=== PATIENT | male | born 1990 | race Caucasian/White ===

== ENCOUNTER 2017-09-14 17:18 | Emergency (ER) | payer OTHER ==
[2017-09-14] MEDS ORDERED: FENTANYL CITRATE INJ/PF 100 MCG/2 ML AMPUL IV ONE (17:34)
[2017-09-14] MEDS ORDERED: KETOROLAC TROMETHAMINE INJ/PF 30 MG/1 ML SDV IV ONE (17:46)
--- NOTE | 2017-09-14 17:50 | ER Document Report ---
ED Extremity Problem, Lower - General Chief Complaint: Knee Injury Stated Complaint: DISLOCATED LEFT KNEE Time Seen by Provider: 09/14/17 17:25 Notes: 27-year-old male to the emergency department after falling down on his left knee. Positive dislocation of the left patella. Pain is 5/5 on a numeric pain scale. No other injuries. Located to the left knee. Patient had EMS pick patient up. 150 mcg of fentanyl given in route. Placed on backboard for transport only. TRAVEL OUTSIDE OF THE [place] IN LAST 30 DAYS: No - HPI Patient complains to provider of: Pain Location: Knee Occurred: Just prior to arrival Where: Work Onset/Duration: Sudden - Related Data Allergies/Adverse Reactions: No Known Allergies Allergy (Verified 09/14/17 17:32) Past Medical History - General Information source: Patient - Social History Smoking Status: Never Smoker Frequency of alcohol use: None Drug Abuse: None Lives with: Family Family History: Reviewed & Not Pertinent Patient has suicidal ideation: No Patient has homicidal ideation: No - Medical History Medical History: Negative Renal/ Medical History: Denies: Hx Peritoneal Dialysis Review of Systems - Review of Systems Constitutional: No symptoms reported EENT: No symptoms reported Cardiovascular: No symptoms reported Respiratory: No symptoms reported Gastrointestinal: No symptoms reported Genitourinary: No symptoms reported Male Genitourinary: No symptoms reported Musculoskeletal: See HPI, Joint pain, Joint swelling, Deformity Skin: No symptoms reported Hematologic/Lymphatic: No symptoms reported Neurological/Psychological: No symptoms reported Physical Exam - Vital signs Vitals: Temp Pulse Resp BP Pulse Ox 97.9 F 101 H 22 H 142/82 H 97 09/14/17 17:29 09/14/17 17:29 09/14/17 17:29 09/14/17 17:29 09/14/17 17:29 Interpretation: Normal - Notes Notes: Uncomfortable - General General appearance: Appears well, Alert - HEENT Head: Normocephalic, Atraumatic Eyes: Normal Pupils: PERRL - Respiratory Respiratory status: No respiratory distress Chest status: Nontender Breath sounds: Normal Chest palpation: Normal - Cardiovascular Rhythm: Regular Heart sounds: Normal auscultation Murmur: No - Abdominal Inspection: Normal Distension: No distension Bowel sounds: Normal Tenderness: Nontender Organomegaly: No organomegaly - Back Back: Normal, Nontender - Extremities General upper extremity: Normal inspection, Nontender, Normal color, Normal ROM , Normal temperature General lower extremity: Other - Significantly uncomfortable. Patient has obvious deformity to the left patella. The patella appears to be dislocated laterally. Pulses are intact distally.. No: Lyndsey's sign - Neurological Neuro grossly intact: Yes Cognition: Normal Orientation: AAOx4 Jacky Coma Scale Eye Opening: Spontaneous Jacky Coma Scale Verbal: Oriented [place] Coma Scale Motor: Obeys Commands [place] Coma Scale Total: 15 Speech: Normal Motor strength normal: LUE, RUE, LLE, RLE Sensory: Normal - Psychological Associated symptoms: Normal affect, Normal mood - Skin Skin Temperature: Warm Skin Moisture: Dry Skin Color: Normal Course - Re-evaluation Re-evalutation: 09/14/17 18:02 Dislocation/reduction technique: Patient received an additional 100 mcg of fentanyl. Control pressure was applied laterally to medially to the left patella. There was a palpable reduction. Patella was held in place. When I let the patella go to put the splint on it popped back laterally. The patella was then reduced again. Help was obtained to help place patient in a splint. Repeat x-rays were performed. 09/14/17 18:14 On further questioning patient states that he was doing a activity where there is a bungee cord attached to his back and he was running to see how far he can get under this tension when he felt and heard a loud pop in the left knee. I have consulted with orthopedic surgery, Dr. Dowell. He will follow up with patient on Saturday. Patient is resting comfortably at this time. Anticipate discharge with crutches. - Vital Signs Vital signs: Temp Pulse Resp BP Pulse Ox 97.9 F 101 H 22 H 142/82 H 97 09/14/17 17:29 09/14/17 17:29 09/14/17 17:29 09/14/17 17:29 09/14/17 17:29 Discharge - Discharge Clinical Impression: Dislocation of left patella Qualifiers: Encounter type: initial encounter Qualified Code(s): S83.005A - Unspecified dislocation of left patella, initial encounter Rupture of left patellar tendon Qualifiers: Encounter type: initial encounter Qualified Code(s): S86.812A - Strain of other muscle(s) and tendon(s) at lower leg level, left leg, initial encounter Disposition: HOME, SELF-CARE Instructions: Use of Crutches ([facility]), Knee Immobilizing Splint ([facility]), Dislocation of the Patella ([facility]) Additional Instructions: No weightbearing to the left lower extremity. Crutches. Wear the brace. Pain medication as needed. Follow-up with orthopedic surgery first thing Saturday. You should expect a call but if you have not heard from them by noon on Saturday then please call the clinic. Prescriptions: Hydrocodone/Acetaminophen [[place] 5-325 mg Tablet] 1 tab PO QID PRN 5 Days #20 tablet PRN Reason: Forms: Return to Work Referrals: EDEN DOWELL DO [ACTIVE STAFF] - 09/16/17 8:00 am
[2017-09-14] MEDS ORDERED: HYDROCODONE/ACETAMINOPHEN 5-325 MG (6 TAB/ER DISP) PO PRN (18:20)
--- NOTE | 2017-09-14 18:22 | RADIOLOGY REPORT (SQ) ---
EXAM DESCRIPTION: KNEE LEFT 2 VIEWS COMPLETED DATE/TIME: 09/14/2017 6:01 pm REASON FOR STUDY: patella dislocation COMPARISON: Left knee x-ray 09/14/2017 at 17:29 hours. NUMBER OF VIEWS: Two views. TECHNIQUE: AP and lateral radiographic images acquired of the left knee on 09/14/2017 at 17:54 hours. LIMITATIONS: None. FINDINGS: MINERALIZATION: Normal. BONES: No acute fracture or dislocation. Interval closed reduction of the lateral dislocation of the patella. JOINT: No significant effusion. SOFT TISSUES: No soft tissue swelling. No radio-opaque foreign body. IMPRESSION: Interval closed reduction of the lateral dislocation of the patella. No radiographic ev idence for acute fracture. TECHNICAL DOCUMENTATION: JOB ID: [id number] [place]-64 2010 [employer]- All Rights Reserved Reading location - IP/workstation name: [email or web address]
--- NOTE | 2017-09-14 18:28 | RADIOLOGY REPORT (SQ) ---
EXAM DESCRIPTION: KNEE LEFT 4 VIEW COMPLETED DATE/TIME: 09/14/2017 6:01 pm REASON FOR STUDY: deformity COMPARISON: None. NUMBER OF VIEWS: Four views. TECHNIQUE: AP, lateral, and both oblique radiographic images acquired of the left knee. LIMITATIONS: None. FINDINGS: MINERALIZATION: Normal. BONES: There is lateral dislocation of the patella. No evidence for acute fracture. JOINT: No significant effusion. SOFT TISSUES: No soft tissue swelling. No radio-opaque foreign body. IMPRESSION: Lateral dislocation of the patella. TECHNICAL DOCUMENTATION: JOB ID: [id number] [place]-[id number] 2010 [employer]- All Rights Reserved Reading location - IP/workstation name: [email or web address]
[2017-09-14 18:58] VITALS: BP 150/78
== END 2017-09-14 18:57 | disposition home or self-care (01) ==
LOC: ER 17:18
DX: S83.015A Lateral dislocation of left patella, initial encounter (principal); W01.0XXA Fall on same level from slipping, tripping and stumbling without subsequent striking against object, initial encounter; Y93.02 Activity, running; Y99.0 Civilian activity done for income or pay
CPT/HCPCS: 99284; 96374; 73560; 73564; 27562; L1830; J3010; J1885

== ENCOUNTER 2018-06-07 18:54 | Emergency (ER) | payer OTHER ==
[2018-06-07] MEDS ORDERED: AMOXICILLIN TR/POT CLAVULANATE 500-125 MG TAB PO ONE (19:21)
[2018-06-07] MEDS ORDERED: AMOXICILLIN TRIHYDRATE 500 MG CAPSULE PO ONE (19:21)
[2018-06-07] MEDS ORDERED: DIPH/PERTUSS(ACELL)/TETANUS VAC/PF 0.5 ML SYR (>=10YO) IM ONE (19:21)
--- NOTE | 2018-06-07 19:27 | ER Document Report ---
ED Animal Bite - General Chief Complaint: Dog Bite Stated Complaint: DOG BITE Time Seen by Provider: 06/07/18 19:21 Primary Care Provider: JARED IRAHETA DO [Primary Care Provider] - Follow up as needed Notes: Patient is a 27-year-old male that comes to the emergency department for chief complaint of dog bite to the right forearm. He has 2 different puncture wounds in the forearm. Injury happened just prior to arrival, he states he was walking his dog when a stray dog that appeared to be a pit bull came out and attacked his dog, he states he was trying to separate them when he was bitten. Animal control was contacted, and uncontrolled currently has the dog. Patient states it was not a collar on the dog but the dog did appear well kept. 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 Patient denies any other injuries. He takes no daily medications, he denies any other complaints. TRAVEL OUTSIDE OF THE [place] IN LAST 30 DAYS: No - Related Data Allergies/Adverse Reactions: No Known Allergies Allergy (Verified 06/07/18 18:56) Past Medical History - General Information source: Patient - Social History Smoking Status: Never Smoker Drug Abuse: None Lives with: Family Family History: Reviewed & Not Pertinent - Medical History Medical History: Negative Renal/ Medical History: Denies: Hx Peritoneal Dialysis Surgical Hx: Negative - Immunizations Immunizations up to date: No Hx Diphtheria, Pertussis, Tetanus Vaccination: Yes Review of Systems - Review of Systems Constitutional: No symptoms reported EENT: No symptoms reported Cardiovascular: No symptoms reported Respiratory: No symptoms reported Gastrointestinal: No symptoms reported Genitourinary: No symptoms reported Male Genitourinary: No symptoms reported Musculoskeletal: See HPI Skin: See HPI Hematologic/Lymphatic: No symptoms reported Neurological/Psychological: No symptoms reported Physical Exam - Vital signs Vitals: Temp Pulse Resp BP Pulse Ox 99.1 F 79 20 134/96 H 94 06/07/18 18:59 06/07/18 18:59 06/07/18 18:59 06/07/18 18:59 06/07/18 18:59 - Notes Notes: GENERAL: Alert, interacts well. No acute distress. HEAD: Normocephalic, atraumatic. EYES: Pupils equal, round, and reactive to light. Extraocular movements intact. ENT: Oral mucosa moist, tongue midline. Oropharynx unremarkable. Airway patent. NECK: Full range of motion. Supple. Trachea midline. LUNGS: Clear to auscultation bilaterally, no wheezes, rales, or rhonchi. No respiratory distress. HEART: Regular rate and rhythm. No murmur ABDOMEN: Soft, non-tender. Non-distended. Bowel sounds present in all 4 quadrants. GENITOURINARY: Deferred EXTREMITIES: Right forearm with a puncture wound over the flexural and extensor surfaces, both are less than 0.5 cm in length, through the skin and into the subcutaneous tissue, there is no swelling, there is no current bleeding, there is no bruising. Normal range of motion of the elbow, wrist, fingers. Normal capillary refill and sensation. Normal radial pulse. BACK: no cervical, thoracic, lumbar midline tenderness. No saddle anesthesia, normal distal neurovascular exam. NEUROLOGICAL: Alert and oriented x3. Normal speech. [cranial nerves II through XII grossly intact]. PSYCH: Normal affect, normal mood. SKIN: Warm, dry, normal turgor. No rashes or lesions noted. Course - Re-evaluation Re-evalutation: There is no significant swelling or tenderness to the genital areas, there are 2 puncture wounds, there is no neurovascular deficit. Discussed with patient. Decision was made to leave these open to avoid infection, these were cleaned, irrigated thoroughly by me, dressed with xeroform/cling/coban, patient was started on prophylactic antibiotics. Updated tetanus. Dog is in quarantine, patient has already received rabies vaccine due to his occupation. Discussed follow-up and return precautions with patient. Patient states understanding and agreement. - Vital Signs Vital signs: Temp Pulse Resp BP Pulse Ox 98.0 F 69 20 139/88 H 97 06/07/18 20:28 06/07/18 20:28 06/07/18 18:59 06/07/18 20:28 06/07/18 20:28 Discharge - Discharge Clinical Impression: Dog bite Qualifiers: Encounter type: initial encounter Qualified Code(s): W54.0XXA - Bitten by dog, initial encounter Forearm laceration Qualifiers: Encounter type: initial encounter Laterality: right Qualified Code(s): S51.811A - Laceration without foreign body of right forearm, initial encounter Condition: Stable Disposition: HOME, SELF-CARE Instructions: Tetanus Immunization Given ([facility]) Additional Instructions: Keep clean dressings over the wounds. These were not closed because of the infection risk of doing so. These will heal with time. Keep clean with soap and water. Take Augmentin antibiotic as prescribed, I recommend a probiotic source to avoid diarrhea while taking. Follow-up with primary care. Return for any concerning symptoms including developing or spreading redness, swelling, discolored discharge, fever, or any other concerning or worsening symptoms. Prescriptions: Amox Tr/Potassium Clavulanate [Augmentin 875-125 Tablet] 1 tab PO BID 7 Days tablet Referrals: JARED IRAHETA DO [Primary Care Provider] - Follow up as needed
[2018-06-07 20:32] VITALS: BP 139/88
== END 2018-06-07 20:33 | disposition home or self-care (01) ==
LOC: ER 18:54
DX: S51.851A Open bite of right forearm, initial encounter (principal); W54.0XXA Bitten by dog, initial encounter; Y93.K9 Activity, other involving animal care; Z23 Encounter for immunization
CPT/HCPCS: 90715; 99283

== ENCOUNTER 2019-04-29 21:30 | Emergency (ER) | payer OTHER ==
--- NOTE | 2019-04-29 22:13 | ER Document Report ---
ED Medical Screen (RME) - General Stated Complaint: EYE DISCOMFORT Time Seen by Provider: 04/29/19 22:08 Primary Care Provider: JARED IRAHETA DO [Primary Care Provider] - Follow up as needed Notes: HPI: History is obtained from the patient and his girlfriend. A 28-year-old male brought for evaluation of blood in the lower aspects of both eyes. Significant other states she noticed it today. Patient states that he had a very harsh coughing episode last night and believes this may have caused it. He has no other history of bruising or bleeding problems. Does not bleed from the gums significantly when brushing the teeth. Does not bruise easily normally. Significant other indicates he did donate plasma this morning. I have greeted and performed a rapid initial assessment of this patient. A comprehensive ED assessment and evaluation of the patient, analysis of test results and completion of the medical decision making process will be conducted by additional ED providers PHYSICAL EXAMINATION: GENERAL: Well-appearing, well-nourished and in no acute distress. HEAD: Atraumatic, normocephalic. EYES: Bilateral sub-conjunctival hemorrhages are noted in the lower aspects of both eyes. There is not significant icterus in the eyes although there is very slight yellowing adjacent to the subconjunctival hemorrhage medially in the right eye. No visible hyphema. No visible corneal abrasion ENT: Moist mucous membranes. NECK: Normal range of motion LUNGS: Normal work of breathing HEART: 2+ radial pulses bilaterally ABD: limited by positioning for exam in triage. EXTREMITIES: no pitting or edema. No cyanosis. NEUROLOGICAL: No focal neurological deficits. Moves all extremities spontaneously and on command. PSYCH: Normal mood, normal affect. SKIN: Warm, Dry, normal turgor, no rashes or lesions noted. No significant b ruising is noted TRAVEL OUTSIDE OF THE [place] IN LAST 30 DAYS: No - Related Data Allergies/Adverse Reactions: No Known Allergies Allergy (Verified 04/29/19 22:07) Past Medical History Renal/ Medical History: Denies: Hx Peritoneal Dialysis - Immunizations Immunizations up to date: No Hx Diphtheria, Pertussis, Tetanus Vaccination: Yes Physical Exam - Vital signs Vitals: Temp Pulse Resp BP Pulse Ox 97.9 F 84 20 150/76 H 96 04/29/19 21:38 04/29/19 21:38 04/29/19 21:38 04/29/19 21:38 04/29/19 21:38 Course - Vital Signs Vital signs: Temp Pulse Resp BP Pulse Ox 97.9 F 84 20 150/76 H 96 04/29/19 21:38 04/29/19 21:38 04/29/19 21:38 04/29/19 21:38 04/29/19 21:38 Doctor's Discharge - Discharge Referrals: JARED IRAHETA DO [Primary Care Provider] - Follow up as needed
[2019-04-29 23:00] LABS: ABSOLUTE BASOPHILS # (AUTO) 0.1 10^3/uL (0.0-0.2); ABSOLUTE EOSINOPHILS # (AUTO) 0.1 10^3/uL (0.0-0.6); ABSOLUTE LYMPHOCYTES (AUTO) 3.3 10^3/uL (0.5-4.7); ABSOLUTE MONOCYTES (AUTO) 0.7 10^3/uL (0.1-1.4); BASOPHILS % (AUTO) 0.7 % (0-2); EOSINOPHILS % (AUTO) 0.7 % (0-6); HEMATOCRIT 45.8 % (37.9-51.0); LYMPHOCYTES % (AUTO) 29.4 % (13-45); MEAN CORPUSCULAR HEMOGLOBIN 30.3 pg (27.0-33.4); MEAN CORPUSCULAR HGB CONC 34.8 g/dL (32.0-36.0); MEAN CORPUSCULAR VOLUME 87 fl (80-97); MONOCYTES % (AUTO) 6.3 % (3-13); PLATELET COUNT 244 10^3/uL (150-450); RED BLOOD COUNT 5.27 10^6/uL (4.35-5.55); SEGMENTED NEUTROPHILS % (AUTO) 62.9 % (42-78); TOTAL CELLS COUNTED % (AUTO) 100 %; WHITE BLOOD COUNT 11.1 10^3/uL (4.0-10.5)
[2019-04-29 23:07] LABS: INTERNATIONAL RATION (INR) 1.05; PROTHROMBIN TIME 13.7 SEC (11.4-15.4)
[2019-04-29 23:20] LABS: ALBUMIN 3.6 g/dL (3.5-5.0); ALKALINE PHOSPHATASE 59 U/L (38-126); ANION GAP 7 (5-19); ASPARTATE AMINO TRANSFERASE 33 U/L (17-59); BILIRUBIN,TOTAL 0.4 mg/dL (0.2-1.3); BLOOD UREA NITROGEN 19 mg/dL (7-20); CALCIUM 8.8 mg/dL (8.4-10.2); CARBON DIOXIDE 26 mmol/L (22-30); CHLORIDE 105 mmol/L (98-107); GLUCOSE 96 mg/dL (75-110); POTASSIUM 3.9 mmol/L (3.6-5.0); TOTAL PROTEIN 6.2 g/dL (6.3-8.2)
--- NOTE | 2019-04-30 00:54 | ER Document Report ---
HPI - HPI Time Seen by Provider: 04/29/19 22:08 Pain Level: Denies Context: Patient is a 28-year-old male that comes to the emergency department for chief complaint of blood in the lower aspect of both the eyes. This was noticed earlier today. Patient and her friend states that patient did have a very harsh coughing episode last night and I think this is the cause was able to be checked. Girlfriend also states that in the left eye there was some yellowing that she noticed that this is almost resolved at this point. Patient denies headache, head injury, visual changes, or any complaints. He states he has no symptoms. He did donate plasma this morning. He takes no daily medications, no past medical history reported. Past Medical History - General Information source: Patient - Social History Smoking Status: Never Smoker Frequency of alcohol use: None Drug Abuse: None Lives with: Family Family History: Reviewed & Not Pertinent Patient has suicidal ideation: No Patient has homicidal ideation: No Renal/ Medical History: Denies: Hx Peritoneal Dialysis - Immunizations Immunizations up to date: Yes Hx Diphtheria, Pertussis, Tetanus Vaccination: Yes Vertical Provider Document - CONSTITUTIONAL General Appearance: WD/WN, No Apparent Distress - Sleeping but easily aroused - INFECTION CONTROL TRAVEL OUTSIDE OF THE [place] IN LAST 30 DAYS: No - HEENT HEENT: Atraumatic, Normocephalic. negative: Normal ENT Exam - Unremarkable nasal, oral pharyngeal exam, ear exams. Normal eyes with normal conjunctivo-, pupils, and EOMs. Right upper eyelid with what appears to be a hordeolum which is mildly tender, surrounding area is mildly erythematous extending to the orbit and over the eyelid. There is no soft tissue swelling. There is no induration or fluctuance. Course - Re-evaluation Re-evalutation: Evaluation is consistent with a right sided upper eyelid hordeolum. There is some mild erythema surrounding this suggesting some cellulitis but patient has no swelling to the area and he has normal EOMs. No fever. No signs of distress. Patient will be covered with Keflex because of borderline cellulitis along with the treatment of hordeolum using erythromycin and general measures. Discussed follow-up and return precautions. Patient states understanding and agreement. Stable at time of discharge. - Vital Signs Vital signs: Temp Pulse Resp BP Pulse Ox 97.9 F 84 20 150/76 H 96 04/29/19 21:38 04/29/19 21:38 04/29/19 21:38 04/29/19 21:38 04/29/19 21:38 - Laboratory Result Diagrams: 04/29/19 22:48 04/29/19 22:48 Laboratory results interpreted by me: 04/29/19 04/29/19 22:48 22:48 WBC 11.1 H Total Protein 6.2 L Discharge - Discharge Clinical Impression: Subconjunctival hemorrhage Qualifiers: Laterality: bilateral Qualified Code(s): H11.33 - Conjunctival hemorrhage, bilateral Condition: Stable Disposition: HOME, SELF-CARE Additional Instructions: The examination shows subconjunctival hemorrhage but no concerning findings. The laboratory work-up does not show any abnormality at this time. The areas will resolve with time, this usually takes 1 to 2 weeks. Follow-up with primary care for additional evaluation and management. Return for any concerning symptoms including severe headache, changes in your vision, or any other concerning or worsening symptoms. Forms: Elevated Blood Pressure Referrals: JRAED IRAHETA DO [NO LOCAL MD] - Follow up as needed
[2019-04-30 01:18] VITALS: BP 129/65
== END 2019-04-30 01:18 | disposition home or self-care (01) ==
LOC: ER 21:30
DX: H11.33 Conjunctival hemorrhage, bilateral (principal); R05 Cough
CPT/HCPCS: 36415; 80053; 85025; 85610; 99283

== ENCOUNTER 2019-06-05 18:38 | Emergency (ER) | payer OTHER ==
[2019-06-05] MEDS ORDERED: TETRACAINE HCL 0.5% OPH SOLN 4 ML OD ONE (20:02)
--- NOTE | 2019-06-05 20:02 | ER Document Report ---
ED Medical Screen (RME) - General Chief Complaint: Eye Injury Stated Complaint: EYE INJURY Time Seen by Provider: 06/05/19 19:58 Primary Care Provider: JULIANE BEDOLLA MD [Primary Care Provider] - Follow up as needed TRAVEL OUTSIDE OF THE [place] IN LAST 30 DAYS: No - HPI Notes: 06/05/19 20:01 Patient is a 28-year-old male presents complaining of possible scratch to his right eye by the baby. He does not wear contact lenses. Patient has had irritation and blurriness to the eye. He does not wear contact lenses. No foreign body sensation. Denies drug allergies. No recent illness. I have treated and performed a rapid initial assessment of this patient. A comprehensive ED assessment and evaluation of the patient, analysis of test results and completion of medical decision making process will be conducted by additional ED providers. PHYSICAL EXAMINATION: GENERAL: Well-appearing, well-nourished and in no acute distress. A&Ox4. Answers questions appropriately. Right eye: PERRLA, EOMI bilaterally. No injection, matting, or purulence. No surrounding erythema. - Related Data Allergies/Adverse Reactions: No Known Allergies Allergy (Verified 04/29/19 22:07) Past Medical History Renal/ Medical History: Denies: Hx Peritoneal Dialysis - Immunizations Immunizations up to date: Yes Hx Diphtheria, Pertussis, Tetanus Vaccination: Yes Physical Exam - Vital signs Vitals: Temp Pulse Resp BP Pulse Ox 97.8 F 64 20 154/62 H 97 06/05/19 18:52 06/05/19 18:52 06/05/19 18:52 06/05/19 18:52 06/05/19 18:52 Course - Vital Signs Vital signs: Temp Pulse Resp BP Pulse Ox 97.8 F 64 20 154/62 H 97 06/05/19 18:52 06/05/19 18:52 06/05/19 18:52 06/05/19 18:52 06/05/19 18:52 Doctor's Discharge - Discharge Referrals: JULIANE BEDOLLA MD [Primary Care Provider] - Follow up as needed
[2019-06-05] MEDS ORDERED: POLYMYXIN B SULFATE/TMP OPH SOLN (10 ML/ER DISP) OD PRN (22:49)
--- NOTE | 2019-06-05 22:53 | ER Document Report ---
HPI - HPI Patient complains to provider of: eye pain Time Seen by Provider: 06/05/19 22:35 Onset: This afternoon Onset/Duration: Sudden Quality of pain: Burning Pain Level: 2 Context: Patient states that a small child accidentally scratched his eye earlier today. Patient states that he has had right eye pain, tearing and blurred vision since the injury. Patient denies any use of glasses or contact lenses. Associated Symptoms: denies: Fever Exacerbated by: Denies Relieved by: Denies Similar symptoms previously: Yes Recently seen / treated by doctor: No - ROS ROS below otherwise negative: Yes Systems Reviewed and Negative: Yes All other systems reviewed and negative - EENT EENT: REPORTS: Eye problems - NEURO Neurology: REPORTS: Vision blurred - DERM Skin Color: Normal Skin Problems: None Past Medical History - General Information source: Patient - Social History Smoking Status: Never Smoker Chew tobacco use (# tins/day): No Drug Abuse: None Lives with: Family Family History: Reviewed & Not Pertinent Patient has suicidal ideation: No Patient has homicidal ideation: No - Medical History Medical History: Negative Renal/ Medical History: Denies: Hx Peritoneal Dialysis Surgical Hx: Negative - Immunizations Immunizations up to date: Yes Hx Diphtheria, Pertussis, Tetanus Vaccination: Yes Vertical Provider Document - CONSTITUTIONAL Agree With Documented VS: Yes Exam Limitations: No Limitations General Appearance: WD/WN, No Apparent Distress - INFECTION CONTROL TRAVEL OUTSIDE OF THE [place] IN LAST 30 DAYS: No - HEENT HEENT: Atraumatic, Normocephalic Notes: Patient with a 2 mm area of fluorescein uptake on examination. Sclera of right eye mildly injected. Tearing noted to right eye. Patient with some mild photophobia. Extraocular movements intact. Patient with small corneal abrasion, no ulcer, foreign body or dendrite - NECK Neck: Normal Inspection - RESPIRATORY Respiratory: Breath Sounds Normal, No Respiratory Distress - CARDIOVASCULAR Cardiovascular: Regular Rate, Regular Rhythm - MUSCULOSKELETAL/EXTREMETIES Musculoskeletal/Extremeties: MAEW - NEURO Level of Consciousness: Awake, Alert, Appropriate Motor/Sensory: No Motor Deficit - DERM Integumentary: Warm, Dry, No Rash Course - Re-evaluation Re-evalutation: 06/05/19 22:51 Patient with small corneal abrasion noted on examination. Patient encouraged to follow-up with ophthalmology for any persistent pain or problems. Good return precautions discussed. - Vital Signs Vital signs: Temp Pulse Resp BP Pulse Ox 97.8 F 64 20 154/62 H 97 06/05/19 18:52 06/05/19 18:52 06/05/19 18:52 06/05/19 18:52 06/05/19 18:52 Discharge - Discharge Clinical Impression: Corneal abrasion Qualifiers: Encounter type: initial encounter Laterality: right Qualified Code(s): S05.01XA - Injury of conjunctiva and corneal abrasion without foreign body, right eye, initial encounter Condition: Stable Disposition: HOME, SELF-CARE Instructions: Corneal Abrasion ([facility]), Eyedrop Use ([facility]) Additional Instructions: Return immediately for any new or worsening symptoms Followup with your primary care provider, call tomorrow to make a followup appointment Instill antibiotic eyedrop to the right eye 4 times a day for the next 7 days. Forms: Return to Work Referrals: JULIANE BEDOLLA MD [ACTIVE STAFF] - Follow up as needed [facility] [Provider Group] - Follow up as needed
[2019-06-05 23:17] VITALS: BP 131/80
== END 2019-06-05 23:16 | disposition home or self-care (01) ==
LOC: ER 18:38
DX: S05.01XA Injury of conjunctiva and corneal abrasion without foreign body, right eye, initial encounter (principal); H57.11 Ocular pain, right eye; H53.8 Other visual disturbances; W50.0XXA Accidental hit or strike by another person, initial encounter
CPT/HCPCS: 99283; J3490 ×2

== ENCOUNTER 2020-01-28 07:58 | Emergency (ER) | payer OTHER ==
--- NOTE | 2020-01-28 08:45 | ER Document Report ---
ED GI/ - General Chief Complaint: Loose Stools Stated Complaint: COUGH/CONGESTION/NAUSEA/DIARRHEA/CHILLS/HEADACHE Time Seen by Provider: 01/28/20 08:11 Primary Care Provider: KATHY HERNANDEZ PA [NO LOCAL MD] - Follow up tomorrow (Call tomorrow for an outpatient follow-up appointment.) Mode of Arrival: Ambulatory Information source: Patient Notes: 29-year-old male with no previous medical problems presents to the emergency room complaining of sharp lower abdominal pain that started earlier this morning. Complains of nausea but no vomiting also complains of a headache and cough for 2 days. States he had 3 episodes of diarrhea earlier today. Patient did have a positive Covid 19 exposure last . Has not been tested for Covid. Has not taken any medications for his symptoms. Denies any bad food. Denies any recent antibiotic use. TRAVEL OUTSIDE OF THE [place] IN LAST 30 DAYS: No - Related Data Allergies/Adverse Reactions: No Known Allergies Allergy (Verified 01/28/20 08:28) Past Medical History - General Information source: Patient - Social History Smoking Status: Never Smoker Frequency of alcohol use: None Drug Abuse: None Family History: Reviewed & Not Pertinent Patient has homicidal ideation: No Renal/ Medical History: Denies: Hx Peritoneal Dialysis - Immunizations Immunizations up to date: Yes Hx Diphtheria, Pertussis, Tetanus Vaccination: Yes Review of Systems - Review of Systems Constitutional: No symptoms reported EENT: No symptoms reported Cardiovascular: No symptoms reported Respiratory: Cough. denies: Short of breath, Wheezing Gastrointestinal: Abdominal pain, Diarrhea, Nausea. denies: Vomiting Genitourinary: No symptoms reported Skin: No symptoms reported Neurological/Psychological: No symptoms reported -: Yes All other systems reviewed and negative Physical Exam - Vital signs Vitals: Temp Pulse Resp BP Pulse Ox 98.3 F 80 18 134/95 H 99 01/28/20 08:07 01/28/20 08:07 01/28/20 08:07 01/28/20 08:07 01/28/20 08:07 - Notes Notes: GENERAL: Mild acute distress, non-toxic appearance. HEAD: Normal with no signs of head trauma. EYES: PERRLA, EOMI, conjunctiva normal, no discharge. EARS: Hearing grossly intact. NOSE: Normal. THROAT: Oropharynx is normal. NECK: Normal range of motion, no tenderness, supple, no lymphadenopathy, No adenopathy, no JVD. CHEST: Clear breath sounds bilaterally. No wheezes, rales, or rhonchi. CARDIAC: Regular rate and rhythm. S1 and S2, without murmurs, gallops, or rubs. VASCULAR: No Edema. Peripheral pulses normal and equal in all extremities. ABDOMEN: Normal and soft with generalized tenderness on palpation, no guarding, no rebound, negative McBurney's point. No masses or pulsatile masses. No organomegaly. Positive bowel sounds x4. No CVA tenderness noted bilaterally. GASTROINTESTINAL: Bowel sounds normal LYMPATHTIC: No lymphadenopathy noted. MUSCULOSKELETAL: Good range of motion of all major joints. Extremities without clubbing, cyanosis or edema. NEUROLOGICAL: Alert and oriented x 3. No focal sensory or strength deficits. Speech normal. Follows commands appropriately. PSYCHIATRIC: Normal Affect, judgement and mood. SKIN: Normal appearance with no rashes or lesions. Course - Re-evaluation Re-evalutation: 01/28/20 10:15 Reviewed CBC and chemistry panel with patient. Due to elevated white count will get CT abdomen and pelvis with IV contrast only. Patient does not have right lower quadrant pain no guarding no rebound, no fevers, low suspicion for appendicitis. Patient is agreeable to additional testing. 01/28/20 10:57 01/28/20 13:44 Patient is resting comfortably he is pain-free on exam. He is afebrile, he is nontoxic-appearing, all test results were reviewed with the patient at length. Long discussion concerning diverticulitis, diet modifications, medications. Patient will be given his first dose of Cipro and Flagyl p.o. prior to discharge. Counseled on importance of outpatient follow-up with his primary care physician tomorrow. Patient was given strict return to the emergency room guidelines. Return for any new or worsening symptoms. All questions were answered. Patient verbalized understanding and agrees with plan of care. - Vital Signs Vital signs: Temp Pulse Resp BP Pulse Ox 98.3 F 80 18 122/76 95 01/28/20 14:30 01/28/20 14:18 01/28/20 14:18 01/28/20 14:18 01/28/20 14:18 - Laboratory Result Diagrams: 01/28/20 09:11 01/28/20 09:11 Laboratory results interpreted by me: 01/28/20 01/28/20 09:11 10:03 WBC 15.3 H Lymph % (Auto) 12.4 L Absolute Neuts (auto) 12.3 H Seg Neutrophils % 80.7 H Ur Leukocyte Esterase TRACE H - Diagnostic Test Radiology reviewed: Reports reviewed Discharge - Discharge Clinical Impression: Diverticulitis of sigmoid colon, Person under investigation for COVID-19 Condition: Stable Disposition: HOME, SELF-CARE Instructions: COVID-19 Guidance for Persons Under Investigation, Ciprofloxacin ([facility]), Diverticulitis ([facility]) Additional Instructions: Avoid any foods with nuts or seeds. You are required to self quarantine until you get a negative COVID-19 test. Follow-up with your primary care physician tomorrow. Take all medications as prescribed. Return to the emergency room for any new or worsening symptoms. Prescriptions: Ciprofloxacin HCl [Cipro 500 mg Tablet] 500 mg PO BID 7 Days #14 tablet Metronidazole [Flagyl 500 mg Tablet] 500 mg PO Q6H #28 tablet Forms: Return to Work Referrals: KATHY HERNANDEZ PA [NO LOCAL MD] - Follow up tomorrow (Call tomorrow for an outpatient follow-up appointment.)
--- NOTE | 2020-01-28 09:13 | RADIOLOGY REPORT (SQ) ---
EXAM DESCRIPTION: CHEST SINGLE VIEW IMAGES COMPLETED DATE/TIME: 01/28/2020 9:05 am REASON FOR STUDY: cough COMPARISON: None. EXAM PARAMETERS: NUMBER OF VIEWS: One view. TECHNIQUE: Single frontal radiographic view of the chest acquired. RADIATION DOSE: NA LIMITATIONS: None. FINDINGS: LUNGS AND PLEURA: No opacities, masses or pneumothorax. No pleural effusion. MEDIASTINUM AND HILAR STRUCTURES: No masses. Contour normal. HEART AND VASCULAR STRUCTURES: Heart normal in size. Normal vasculature. BONES: No acute findings. HARDWARE: None in the chest. OTHER: No other significant finding. IMPRESSION: NO ACUTE RADIOGRAPHIC FINDING IN THE CHEST. TECHNICAL DOCUMENTATION: JOB ID: [id number] 2010 [employer]- All Rights Reserved Reading location - IP/workstation name: [email or web address]
[2020-01-28 09:31] LABS: ABSOLUTE LYMPHOCYTES (AUTO) 1.9 10^3/uL (0.5-4.7); ABSOLUTE NEUT (AUTO) 12.3 10^3/uL (1.7-8.2); BASOPHILS % (AUTO) 0.3 % (0-2); EOSINOPHILS % (AUTO) 0.3 % (0-6); HEMATOCRIT 48.2 % (37.9-51.0); HEMOGLOBIN 16.5 g/dL (13.5-17.0); LYMPHOCYTES % (AUTO) 12.4 % (13-45); MEAN CORPUSCULAR HEMOGLOBIN 30.5 pg (27.0-33.4); MEAN CORPUSCULAR HGB CONC 34.3 g/dL (32.0-36.0); MEAN CORPUSCULAR VOLUME 89 fl (80-97); MONOCYTES % (AUTO) 6.3 % (3-13); PLATELET COUNT 198 10^3/uL (150-450); RED BLOOD COUNT 5.42 10^6/uL (4.35-5.55); RED CELL DISTRIBUTION WIDTH 13.1 % (11.5-14.0); SEGMENTED NEUTROPHILS % (AUTO) 80.7 % (42-78); TOTAL CELLS COUNTED % (AUTO) 100 %; WHITE BLOOD COUNT 15.3 10^3/uL (4.0-10.5)
[2020-01-28 09:49] LABS: ALBUMIN 3.9 g/dL (3.5-5.0); ALKALINE PHOSPHATASE 64 U/L (38-126); ANION GAP 9 (5-19); ASPARTATE AMINO TRANSFERASE 30 U/L (17-59); BILIRUBIN,DIRECT 0.3 mg/dL (0.0-0.4); BILIRUBIN,TOTAL 0.6 mg/dL (0.2-1.3); BLOOD UREA NITROGEN 15 mg/dL (7-20); CALCIUM 9.1 mg/dL (8.4-10.2); CARBON DIOXIDE 24 mmol/L (22-30); CHLORIDE 106 mmol/L (98-107); GLUCOSE 97 mg/dL (75-110); POTASSIUM 4.4 mmol/L (3.6-5.0); TOTAL PROTEIN 6.5 g/dL (6.3-8.2)
[2020-01-28 10:17] LABS: APPEARANCE,URINE CLEAR; BILIRUBIN,URINE NEGATIVE (NEGATIVE); COLOR,URINE YELLOW; GLUCOSE, URINE NEGATIVE (NEGATIVE); KETONES,URINE NEGATIVE (NEGATIVE); LEUKOCYTE ESTERASE,URINE TRACE (NEGATIVE); NITRITE,URINE NEGATIVE (NEGATIVE); PROTEIN,URINE NEGATIVE (NEGATIVE); UROBILINOGEN,URINE NEGATIVE mg/dL (<2.0)
--- NOTE | 2020-01-28 12:41 | RADIOLOGY REPORT (SQ) ---
EXAM DESCRIPTION: CT ABD/PELVIS WITH IV ONLY IMAGES COMPLETED DATE/TIME: 01/28/2020 12:27 pm REASON FOR STUDY: abdominal pain COMPARISON: None. TECHNIQUE: CT scan of the abdomen and pelvis performed using helical scanning technique with dynamic intravenous contrast injection. No oral contrast. Images reviewed with lung, soft tissue, and bone windows. Reconstructed coronal and sagittal MPR images reviewed. Delayed images for evaluation of the urinary system also acquired. All images stored on PACS. All CT scanners at this facility use dose modulation, iterative reconstruction, and/or weight based d osing when appropriate to reduce radiation dose to as low as reasonably achievable (ALARA). [facility]: Dose Right [facility]: CareDose [facility]: Dose Right [facility]: Teradose 4D [facility]: [employer] CONTRAST TYPE AND DOSE: contrast/concentration: Isovue 350.00 mmol/ml; Total Contrast Delivered: 99. 9 ml; Total Saline Delivered: 71.9 ml RENAL FUNCTION: BUN 15 creatinine 1.0. RADIATION DOSE: CT Rad equipment meets quality standard of care and radiation dose reduction techniq ues were employed. CTDIvol: 18.9 - 21.1 mGy. DLP: 2486 mGy-cm.. LIMITATIONS: None. FINDINGS: LOWER CHEST: No significant findings. No nodules or infiltrates. LIVER: Normal size. No masses. No dilated ducts. SPLEEN: Normal size. No focal lesions. PANCREAS: No masses. No significant calcifications. No adjacent inflammation or peripancreatic fluid collections. Pancreatic duct not dilated. GALLBLADDER: No identified stones by CT criteria. No inflammatory changes to suggest cholecystitis. ADRENAL GLANDS: No significant masses or asymmetry. RIGHT KIDNEY AND URETER: No solid masses. No significant calcifications. No hydronephrosis or hyd roureter. LEFT KIDNEY AND URETER: No solid masses. No significant calcifications. No hydronephrosis or hydr oureter. AORTA AND VESSELS: No aneurysm. No dissection. Renal arteries, SMA, celiac without stenosis. RETROPERITONEUM: No retroperitoneal adenopathy, hemorrhage or masses. BOWEL AND PERITONEAL CAVITY: Diverticuli in the descending and sigmoid colon. Focal inflammatory tahir nges in the sigmoid colon with bowel wall thickening and stranding in the pericolonic tissues. No ab normal fluid collection or extraluminal gas. No free fluid or peritoneal masses. APPENDIX: Normal. PELVIS: No mass. No free fluid. Normal bladder. ABDOMINAL WALL: No masses. No hernias. BONES: No significant or acute findings. OTHER: No other significant finding. IMPRESSION: 1. ACUTE SIGMOID DIVERTICULITIS. NO EVIDENCE OF ABSCESS OR PERFORATION. 2. NO OTHER SIGNIFICANT OR ACUTE FINDING IN THE ABDOMEN OR PELVIS ON CT SCAN WITH IV CONTRAST. TECHNICAL DOCUMENTATION: JOB ID: [id number] Quality ID # [id number]: Final reports with documentation of one or more dose reduction techniques (e.g., Au tomated exposure control, adjustment of the mA and/or kV according to patient size, use of iterative reconstruction technique) 2010 [employer]- All Rights Reserved Reading location - IP/workstation name: [email or web address]-
[2020-01-28] MEDS ORDERED: METRONIDAZOLE 500 MG TABLET PO ONE (13:43)
[2020-01-28] MEDS ORDERED: CIPROFLOXACIN HCL 500 MG TABLET PO ONE (13:43)
[2020-01-28 14:29] VITALS: BP 122/76
== END 2020-01-28 14:30 | disposition home or self-care (01) ==
LOC: ER 07:58
DX: K57.32 Diverticulitis of large intestine without perforation or abscess without bleeding (principal); Z20.828 Contact with and (suspected) exposure to other viral communicable diseases; R05 Cough; R11.0 Nausea; R51.9 Headache, unspecified; R68.83 Chills (without fever); R10.30 Lower abdominal pain, unspecified
CPT/HCPCS: 99285; 36415; 85025; 80053; 81001; 71045; 74177; U0003; C9803; 87635